=== PATIENT | male | born 2000 | race Caucasian/White ===

== ENCOUNTER 2020-11-22 19:16 | Emergency (ER) | payer SELFPAY ==
[~2020-11-22 19:16] MED LIST: BENTYL10 MG PO; FLAGYL500 MG PO; NAPROXEN500 MG PO
== END 2020-11-22 21:30 | disposition home or self-care (01) ==
LOC: FER 19:16
DX: J00 Acute nasopharyngitis [common cold] (principal); R04.0 Epistaxis; Z88.0 Allergy status to penicillin; Z98.890 Other specified postprocedural states
CPT/HCPCS: 99283